=== PATIENT | female | born 1970 | race Caucasian/White ===

== ENCOUNTER 2018-01-24 11:13 | Inpatient (IN) | payer OTHER ==
[~2018-01-24] VITALS: Ht 149.9 cm; Wt 92.1 kg
[2018-01-24] MEDS ORDERED: SODIUM CHLORIDE 0.9% 1,000 ML IV ONE (12:14)
[2018-01-24] MEDS ORDERED: ONDANSETRON HCL 4MG/2ML INJ IV ONE (12:15)
[2018-01-24] MEDS ORDERED: MECLIZINE 25MG TABLET PO ONE (12:15)
[2018-01-24 12:22] LABS: BASOPHILS % 0.5 % (0.0-2.0); EOSINOPHILS % 0.5 % (0.0-5.0); HEMATOCRIT. 42.4 % (36.0-48.0); HEMOGLOBIN. 14.7 g/dL (12.0-16.0); LYMPHOCYTES % 21.4 % (20.0-50.0); MEAN CORPUSCULAR HEMOGLOBIN 28.4 pg (28.0-32.0); MEAN CORPUSCULAR VOLUME 82.2 fL (81.0-99.0); MEAN PLATELET VOLUME 8.7 fl (7.4-10.4); MONOCYTES % 3.6 % (2.0-8.0); PLATELET 224 x1000/uL (130-400); RED BLOOD CELL COUNT 5.16 mill/uL (4.2-5.4); RED CELL DISTRIBUTION WIDTH 14.1 % (11.6-14.6)
[2018-01-24 12:24] LABS: CHLORIDE 104 mEq/L (98-107)
[2018-01-24 12:28] LABS: ETHANOL BLOOD < 10 mg/dL
[2018-01-24] MEDS ORDERED: POTASSIUM CHLORIDE 20MEQ TABLET SR PO ONE (13:00)
[2018-01-24 13:01] LABS: HCG SCREEN NEGATIVE
[2018-01-24] MEDS ORDERED: IPRATROPIUM/ALBUTEROL 0.5-3(2.5)MG/3ML NEB INH PRN (14:45)
[2018-01-24] MEDS ORDERED: ONDANSETRON HCL 4MG/2ML INJ IV PRN (14:45)
[2018-01-24] MEDS ORDERED: DOCUSATE SODIUM 100MG CAPSULE PO PRN (14:45)
[2018-01-24] MEDS ORDERED: ACETAMINOPHEN 650MG/20.3ML UDC GT PRN (14:45)
[2018-01-24] MEDS ORDERED: GUAIFENESIN 200MG/10ML SUGAR FREE UDC PO PRN (14:45)
[2018-01-24] MEDS ORDERED: DEXTROSE 50% WATER 50ML SYRINGE IV PRN (14:45)
[2018-01-24] MEDS ORDERED: NA PHOS,M-B/NA PHOS,DI-BA ENEMA 118ML PR PRN (14:45)
[2018-01-24] MEDS ORDERED: DIPHENHYDRAMINE 50MG/ML VIAL IV PRN (14:45)
[2018-01-24] MEDS ORDERED: MAGNESIUM/ALUMINUM HYDROXIDE/SIMETHICONE 30ML UDC PO PRN (14:45)
[2018-01-24] MEDS ORDERED: CLONIDINE 0.1MG TABLET PO PRN (14:45)
[2018-01-24] MEDS ORDERED: POTASSIUM CHLORIDE 20MEQ TABLET SR PO PRN (14:45)
[2018-01-24] MEDS ORDERED: ACETAMINOPHEN 650MG SUPP PR PRN (14:45)
[2018-01-24 15:25] VITALS: BP 142/70
[2018-01-24] MEDS ORDERED: IOHEXOL-350 100 ML BOTTLE ONE (16:23)
[2018-01-24] MEDS: BLOOD SUGAR DIAGNOSTIC STRIP TEST SCH ×2 (16:41→21:00)
[2018-01-24] MEDS: INSULIN LISPRO 100 UNITS/ML SUBCUT SCH ×2 (17:20→21:00)
[2018-01-24] MEDS: AMLODIPINE 5MG TABLET PO SCH (17:31)
[2018-01-24] MEDS: MECLIZINE 25MG TABLET PO SCH (17:32)
[2018-01-24] MEDS: SODIUM CHLORIDE 0.45% 1,000 ML IV SCH (17:36)
[2018-01-24 20:00] VITALS: BP 138/100
[2018-01-24] MEDS: ENOXAPARIN 30MG/0.3ML SYR SUBCUT SCH (22:13)
[2018-01-24] MEDS: SODIUM CHLORIDE 0.9% INJ 3ML FLUSH IVF SCH (22:14)
[2018-01-24 23:13] LABS: CREATINE KINASE 118 IU/L (26-192)
[2018-01-24 23:14] LABS: CREATINE KINASE MB FRACTION 2.5 ng/mL (0.5-3.6)
[2018-01-25] VITALS (7 sets, daily range): BP systolic 113–141; BP diastolic 52–74
[2018-01-25] MEDS: MECLIZINE 25MG TABLET PO SCH ×3 (00:10→17:51)
[2018-01-25 03:35] LABS: CLARITY URINE CLEAR (CLEAR); COLOR URINE YELLOW (YELLOW); KETONES URINE NEGATIVE (NEGATIVE); LEUKOCYTE ESTERASE URINE NEGATIVE (NEGATIVE); NITRITE URINE NEGATIVE (NEGATIVE); OCCULT BLOOD URINE NEGATIVE (NEGATIVE); PROTEIN URINE NEGATIVE (NEGATIVE); SPECIFIC GRAVITY URINE 1.015 (1.005-1.030); UROBILINOGEN URINE 0.2 E.U./dL (0.2-1.0)
[2018-01-25 03:54] LABS: *AMPHETAMINES SCREEN URINE NEGATIVE (NEGATIVE)
[2018-01-25 03:55] LABS: *BARBITURATES SCREEN URINE NEGATIVE (NEGATIVE); *BENZODIAZEPINES SCREEN URINE NEGATIVE (NEGATIVE); *COCAINE SCREEN URINE NEGATIVE (NEGATIVE); METHADONE URINE SCREEN NEGATIVE (NEGATIVE); OPIATES URINE SCREEN NEGATIVE (NEGATIVE); PHENCYCLIDINE URINE SCREEN NEGATIVE (NEGATIVE)
[2018-01-25 03:56] LABS: CANNABINOID URINE SCREEN NEGATIVE (NEGATIVE)
[2018-01-25] MEDS: SODIUM CHLORIDE 0.45% 1,000 ML IV SCH (05:27)
[2018-01-25] MEDS: SODIUM CHLORIDE 0.9% INJ 3ML FLUSH IVF SCH ×2 (05:29→14:00)
[2018-01-25 06:17] LABS: EOSINOPHILS % 0.9 % (0.0-5.0); HEMATOCRIT. 39.6 % (36.0-48.0); HEMOGLOBIN. 13.7 g/dL (12.0-16.0); LYMPHOCYTES % 26.8 % (20.0-50.0); MEAN CORPUSCULAR HEMOGLOBIN 28.7 pg (28.0-32.0); MEAN CORPUSCULAR VOLUME 83.1 fL (81.0-99.0); MEAN PLATELET VOLUME 8.9 fl (7.4-10.4); MONOCYTES % 5.6 % (2.0-8.0); NEUTROPHILS % 65.7 % (40.0-76.0); PLATELET 221 x1000/uL (130-400); RED BLOOD CELL COUNT 4.77 mill/uL (4.2-5.4)
[2018-01-25] MEDS: BLOOD SUGAR DIAGNOSTIC STRIP TEST SCH ×3 (06:24→17:40)
[2018-01-25 06:47] LABS: CHLORIDE 109 mEq/L (98-107)
[2018-01-25 06:57] LABS: LDL CHOLESTEROL 97 mg/dL (5-100)
[2018-01-25 06:59] LABS: CREATINE KINASE 103 IU/L (26-192); HDL CHOLESTEROL 40 mg/dL (40-59)
[2018-01-25 07:02] LABS: CREATINE KINASE MB FRACTION 1.7 ng/mL (0.5-3.6)
[2018-01-25] MEDS: INSULIN LISPRO 100 UNITS/ML SUBCUT SCH ×3 (08:10→18:10)
[2018-01-25] MEDS: ACETAMINOPHEN 325MG TABLET PO PRN ×2 (08:27→19:27)
[2018-01-25] MEDS: AMLODIPINE 5MG TABLET PO SCH (08:52)
[2018-01-25] MEDS: ENOXAPARIN 30MG/0.3ML SYR SUBCUT SCH (08:53)
== END 2018-01-25 21:00 | disposition short-term general hospital (02) | DRG 392 ==
LOC: ER 12:42 → 7WST 12:49 → ENRESERV 13:38
PROVIDERS: ADMIT Family Medicine; ATTEND Family Medicine
DX: R11.2 Nausea with vomiting, unspecified (principal); Z68.41 Body mass index [BMI] 40.0-44.9, adult; E66.01 Morbid (severe) obesity due to excess calories; R73.9 Hyperglycemia, unspecified; R42 Dizziness and giddiness; E87.6 Hypokalemia; I10 Essential (primary) hypertension; Z90.710 Acquired absence of both cervix and uterus; Z98.891 History of uterine scar from previous surgery
CPT/HCPCS: 36415; 70450; 71045; 80053; 80061; 80305; 81003; 82550; 82553; 82962; 83690; 83735; 83880; 84484; 84703; 85025; 85610; 93005; 96361; 96374; 99285; G0482; J1650; J2405; J7030; J7040; J8597; Q9967